=== PATIENT | female | born 1960 | race Caucasian/White ===

== ENCOUNTER 2021-05-10 05:32 | Outpatient (CLI) | payer BC ==
[~2021-05-10] VITALS: Ht 162.6 cm; Wt 76.5 kg
[2021-05-10] MEDS ORDERED: LEVO75CA5 PO (14:35)
[2021-05-10] MEDS ORDERED: GARL10002 PO (14:35)
[2021-05-10] MEDS ORDERED: [UNRECOGNIZED DRUG - CODE] PO (14:35)
[2021-05-10] MEDS ORDERED: ASCO500C17 PO (14:35)
[2021-05-10] MEDS ORDERED: CITA20TA9 PO (14:35)
[2021-05-10] MEDS ORDERED: GABA300S2 PO (14:35)
[2021-05-10] MEDS ORDERED: METF-865 PO (14:35)
[2021-05-10] MEDS ORDERED: CYAN50005 PO (14:35)
[2021-05-10] MEDS ORDERED: LYSI100014 PO (14:35)
[2021-05-10] MEDS ORDERED: CALC-696 PO (14:35)
[2021-05-10] MEDS ORDERED: BLAC540C4 PO (14:35)
[2021-05-10] MEDS ORDERED: POTA99TA21 PO (14:35)
[2021-05-10] MEDS ORDERED: LIOT5TAB10 PO (14:35)
[2021-05-10] MEDS ORDERED: ASPI-999 PO (14:35)
[2021-05-10] MEDS ORDERED: LOSA1TAB26 PO (14:35)
[2021-05-10] MEDS ORDERED: [UNRECOGNIZED DRUG - OTHER] (14:35)
[2021-05-10] MEDS ORDERED: BIOT10004 PO (14:35)
[2021-05-10] MEDS ORDERED: CETI10TA49 PO (14:35)
== END 2021-05-10 14:45 | disposition home or self-care (01) ==
LOC: PREOP 05:32
PROVIDERS: ATTEND Obstetrics & Gynecology
DX: Z01.818 Encounter for other preprocedural examination (principal)

== ENCOUNTER 2021-05-17 08:22 | Day surgery (SDC) | payer BC ==
[~2021-05-17] VITALS: Ht 162 cm; Wt 76.5 kg
[2021-05-17] VITALS (12 sets, daily range): BP systolic 116–148; BP diastolic 59–80
[~2021-05-17 08:22] MED LIST: ASCO500C17 PO; ASPI-999 PO; BIOT10004 PO; BLAC540C4 PO; CALC-696 PO; CETI10TA49 PO; CITA20TA9 PO; CYAN50005 PO; GABA300S2 PO; GARL10002 PO; LEVO75CA5 PO; LIOT5TAB10 PO; LOSA1TAB26 PO; LYSI100014 PO; METF-865 PO; POTA99TA21 PO; [UNRECOGNIZED DRUG - CODE] PO; [UNRECOGNIZED DRUG - OTHER]
[2021-05-17] MEDS ORDERED: NS (IVPB) 100 ML ONE (08:44)
[2021-05-17] MEDS ORDERED: LIDOCAINE/EPI 1%-1:100,000 (XYLOCAINE) 20ML ONE (08:44)
[2021-05-17] MEDS ORDERED: ESTRADIOL VAGINAL CREAM 42.5 GM (ESTRACE) VG ONE (08:44)
[2021-05-17] MEDS ORDERED: LIDOCAINE/EPI 1%-1:200,000 (XYLOCAINE) 30 ML VIAL ONE (08:44)
[2021-05-17] MEDS ORDERED: VASOPRESSIN INJECTION 20 UNIT/ML VIAL ONE (08:44)
[2021-05-17] MEDS ORDERED: metroNIDAZOLE 500MG/100ML IVPB 100 ML IV ONE (08:45)
[2021-05-17] MEDS ORDERED: ceFAZolin 2 GM IV Premixed 50 ML IV ONE (08:45)
--- NOTE | 2021-05-17 08:51 | Progress Note-Pre Operative ---
Pre-Operative Progress Note H&P Reviewed The H&P was reviewed, patient examined and no changes noted. Date Seen by Provider: May 17, 2021 Time Seen by Provider: 08:50 Date H&P Reviewed: May 17, 2021 Time H&P Reviewed: 07:00 Pre-Operative Diagnosis: incomplete uterovaginal prolapse, stress incontinence LEXX PRINCE DO May 17, 2021 08:51
[2021-05-17 09:11] LABS: BASOPHILS % (AUTO) 1 % (0-10); EOSINOPHILS # (AUTO) 0.2 10^3/uL (0.0-0.3); EOSINOPHILS % (AUTO) 2 % (0-10); HEMATOCRIT 47 % (35-52); HEMOGLOBIN 15.1 g/dL (11.5-16.0); LYMPHOCYTES # (AUTO) 2.1 10^3/uL (1.0-4.0); LYMPHOCYTES % (AUTO) 27 % (12-44); MEAN CORPUSCULAR HEMOGLOBIN 30 pg (25-34); MEAN CORPUSCULAR HGB CONC 32 g/dL (32-36); MEAN CORPUSCULAR VOLUME 92 fL (80-99); MEAN PLATELET VOLUME 9.8 fL (9.0-12.2); MONOCYTES # (AUTO) 0.8 10^3/uL (0.0-1.0); MONOCYTES % (AUTO) 10 % (0-12); NEUTROPHILS # (AUTO) 4.7 10^3/uL (1.8-7.8); NEUTROPHILS % (AUTO) 60 % (42-75); PLATELET COUNT 198 10^3/uL (130-400); WHITE BLOOD COUNT 7.9 10^3/uL (4.3-11.0)
[2021-05-17] MEDS: LACTATED RINGERS 1,000 ML IV PRN ×3 (09:25→12:47)
[2021-05-17 09:31] LABS: LYMPHOCYTES % (MANUAL) 32 %; MONOCYTES % (MANUAL) 11 %; NEUTROPHILS % (MANUAL) 55 %
[2021-05-17 09:32] LABS: EOSINOPHILS % (MANUAL) 2 %; RBC MORPH NORMAL
[2021-05-17 09:39] LABS: BILIRUBIN,URINE NEGATIVE (NEGATIVE); CLARITY,URINE CLEAR; COLOR,URINE YELLOW; GLUCOSE, URINE (UA) NEGATIVE (NEGATIVE); KETONES,URINE NEGATIVE (NEGATIVE); LEUKOCYTE ESTERASE ,URINE NEGATIVE (NEGATIVE); NITRITE,URINE NEGATIVE (NEGATIVE); PROTEIN,URINE NEGATIVE (NEGATIVE)
[2021-05-17] MEDS ORDERED: fentaNYL INJ 100 MCG/2 ML AMP ONE (09:40)
[2021-05-17] MEDS ORDERED: LIDOCAINE PF 2% 5 ML (XYLOCAINE) VIAL ONE ×2 (09:40→09:42)
[2021-05-17] MEDS ORDERED: proPOfol 200 MG/20 ML (DIPRIVAN) VIAL IV ONE ×2 (09:40→09:41)
[2021-05-17] MEDS ORDERED: ROCURONIUM 10 MG/ML 5 ML SYRINGE IV ONE (09:41)
[2021-05-17] MEDS ORDERED: MIDAZOLAM 2 MG/2 ML (VERSED) VIAL ONE (09:41)
[2021-05-17] MEDS ORDERED: ONDANSETRON 4 MG/2 ML (SDV) Z0FRAN ONE (09:41)
[2021-05-17 10:00] LABS: BACTERIA,URINE NEGATIVE /HPF; SQUAMOUS EPITHELIAL CELL,UR 0-2 /HPF; WBC,URINE 0-2 /HPF
[2021-05-17 10:01] LABS: AMORPHOUS SEDIMENT,UR FEW AMOR URATES /LPF
[2021-05-17] MEDS ORDERED: HYDROmorphone 2 MG/ML VIAL (DILAUDID) ONE (10:12)
[2021-05-17] MEDS ORDERED: NEOSTIGMINE 3 MG/3 ML VIAL ONE (11:02)
[2021-05-17] MEDS ORDERED: GLYCOPYRROLATE 0.2 MG/ML (ROBINUL) 2 ML VIAL ONE ×2 (11:02→12:02)
[2021-05-17] MEDS ORDERED: SEVOFLURANE (ULTANE) 15 ML INHAL SOLN ONE ×3 (11:50→12:33)
[2021-05-17] MEDS ORDERED: PHENYLEPHRINE 100 MCG/ML 10 ML (ANESTHESIA) SYR ONE (12:02)
[2021-05-17] MEDS ORDERED: KETOROLAC 30 MG/ML VIAL ONE (12:35)
[2021-05-17] MEDS ORDERED: BENZOCAINE/MENTHOL (DERMOPLAST) 56 ML CAN TP PRN (12:45)
[2021-05-17] MEDS ORDERED: METOCLOPRAMIDE INJ 10 MG/2 ML (REGLAN) IV PRN (12:45)
[2021-05-17] MEDS ORDERED: morphine INJ 4 MG/ML 1 ML (VIAL/SYRINGE) IVP PRN (12:45)
[2021-05-17] MEDS ORDERED: ONDANSETRON 4 MG/2 ML (SDV) Z0FRAN IV PRN (12:45)
[2021-05-17] MEDS ORDERED: PATIENT MAY USE OWN MEDS, ALL MC SCH (12:45)
[2021-05-17] MEDS ORDERED: KETOROLAC 30 MG/ML VIAL IV SCH (12:45)
--- NOTE | 2021-05-17 12:49 | Operative Report ---
Operative Report Date of Procedure/Surgery May 17, 2021 Surgeon (s) LEXX PRINCE DO Rpg Programmer Analyst (s): NA Post-Operative Diagnosis same, urethral and cervical stenosis pigented and raised ight labial lesion multiple small sebaceous cysts Procedure Performed RaTH, BSO anterior colporraphy PV sling right labil biopsy Description of Procedure Anesthesia Type: General Estimated blood loss (mL): 100 Specimen(s) collected/removed uterus tubes, ovaries right labial biopsy Description of the Procedure After informed consent was obtained, patient was taken into the operating room where general anesthetic was found to be adequate. She was prepped and draped in the usual sterile fashion in the dorsal lithotomy position. A Hurtado catheter was placed. A speculum was placed in the vagina. The cervix is stenotic and the cervix is flush with the vaginal apex. There was a large cystocele, and a smaller rectocele. The cervix was visualized and the anterior lip was grasped with a sharp toothed tenaculum. The cervix was gently dilated with dilators before I was able to sound the uterus. The uterus was sounded and depth was approximately 6 centimeters. I placed the Grace device ( 6 cm) and a 3.0 cm collar was advanced over the cervix. I inserted the Grace without difficulty, inflating the balloon and securing it around the fornix of the cervix. The collar was then secured with sutures at 12 o'clock. Attention was then turned to the patient's abdomen. the skin was injected with 0.25% Marcaine. A supraumbilical incision was made about 8 mm. A Veress needle was inserted and I confirmed intraabdominal placement with a drop in pressure and the saline drop test. The opening pressure was 7 mmHg. I then insufflated the abdomen to a maximum of 15 mmHg with warmed CO2 gas. I placed an additional 8 mm trocar in the left abdomen lateral to the umbilicus approximately 15 cm. The second robotic port was placed about 12 cm lateral to the right placement. This was an 8 mm trocar. These were placed under direct visualization of the laparoscope. 0.25% Marcaine was injected prior to placement of all trocars. When all placements were confirmed, the patient was placed in steep [place] allowing adequate visualization and the robot was brought in for docking. The docking was accomplished without difficulty. I then took over the command of the robot utilizing the sureseal and monopolar nazia. I was able to visualize the round ligaments bilaterally and grasped them and cauterized with bipolar cautery and then cut with my nazia. At this point, I grasped the infundibulopelvic ligament and transected bilaterally using the bipolar. There was no bleeding, no adhesions and no damage. I then moved my dissection to the posterior leaves of the broad ligament. I dissected the posterior leaves of the broad ligament off the uterine arteries skeletonizing them bilaterally. I then took a second clamp with the bipolar cautery and with the nazia, transected the vessels away from the lateral aspect to the cervical stroma. I dissected the anterior peritoneum off the lower uterine segment. I continually pushed the bladder back and I took excessively great care and I was eventually able to dissect the vesicouterine peritoneum off the lower uterine segment. I then dissected in a V fashion towards the midline between the uterosacral ligaments. This allowed me to skeletonize the uterine vessels bilaterally. The balloon on the GRACE was insufflated. This allowed me to see the GRACE circumferentially. I then performed a colpotomy anteriorly and then amputate with cervix away from the vaginal fornix. I then continued the colpotomy circumferentially. Once this was performed, the autopsy assistant removed the uterus, tubes and ovaries through the vagina. She then left the uterus in the vagina to maintain the pneumoperitoneum. . I then began closure of the vaginal cuff. The uterus was left in the vagina to maintain pneumoperitoneum. I closed the apices of the vaginal cuff with 2-0 Vicryl V lock sutures with a colposuspension through the uterosacral ligaments. This suspended the apices of the vaginal cuff. I extended this to the midline from both sides and overlapped the V lock sutures in the midline. Excellent closure is noted and hemostasis is achieved. There was a moderate enterocele, so i did a modified culdoplasty with the Vicryl in a pursestring fashion (two stitches). The ureters were seen and were no where near the area of dissection. All the needles were removed from the patient's abdomen. Now, the robotic instruments were removed and the robot was docked back to laparoscopy. The pelvis was irrigated. There was no active bleeding noted. Bilateral ureters were seen the entire time during the surgery and were peristalsing. There was no excessive bleeding noted. The trocars were removed under direct visualization. The laparoscopic sites were visualized and found to be hemostatic. The trocar sites were injected with 0.25% Marcaine. The skin incisions were closed with 4-0 Monocryl in a subcuticular fashion and then with Dermabond. Op sites were placed over the incision sites. The instruments were removed from the vagina and I noted there were no abrasions. The patient was repositioned. The cystocele was mostly reduced but was still 2+. She continued to have relaxation of the urethra. the rectocele was mostly reduced however. I grasped the anterior vagina with an Allis clamp. I then injected the posterior epithelium with the dilute vasopressin and then made a midline incision I undermined the vaginal epithelium and then dissected this o ff of the pubovaginal fascia laterally to the white line. I then reduced the cystocele with two layers of interrupted figure of eight style 2-0 Vicryl sutures. This adequately reduced the cystocele. I then trimmed the vaginal epithelium and then closed the defect with 2-- Vicryl in a running fashion. I then repositioned the patient and removed the catheter. I made a 1 cm incision approximately 1.5 cm from the urethral meatus. I dissected laterally with metzenbaum scissors and then performed a pubovaginal sling in standard fashion. this laid gently under the urethra in the midurethra with no twist or buckling. I then removed the catheter and gently dilated the urethra to place the cystoscopy. I did a cystoscopy and saw both ureters effluxing bilaterally. There was no defect in the bladder. During this time, the patient exhibited a valsalva and there was no leakage with a full bladder. The desura device was then removed after I determined the sling was in proper location and not too tight. The vaginal epithelium was now closed with 4-0 Monocryl in running fashions. The vagina was then packed with Estrace cream and vaginal packing. Sponge, lap, needle and instrument counts correct times two. Patient was awakened and taken to recovery in a stable condition. Findings of the Procedure large fibroid uterus 4+ cystocele > 50 deg rotation of urethra cervical stenosis vaginal atrophy urethral atrophy normal tubes right ovary stuck to the right pelvis and ovarian fossa normal left atrophic ovary 2-3 + prolapse small enterocele 1-2 + rectocele Allergies and Home Medications Allergies Coded Allergies: No Known Drug Allergies (Unverified , 05/10/21) Home Medications Acetaminophen 500 Mg Tablet, 1,000 MG PO Q8HR Prescribed by: LEXX PRINCE on 05/18/21 0830 Ascorbic Acid 500 Mg Capsule, 500 MG PO UD, (Reported) EVERY OTHER DAY Last Action: Last Taken Edited Aspirin 81 Mg Tab.chew, 81 MG PO DAILY, (Reported) Last Action: Last Taken Edited Biotin 1,000 Mcg Tab.chew, 1,000 MCG PO DAILY, (Reported) Last Action: Last Taken Edited Black Cohosh 540 Mg Capsule, 540 MG PO UD, (Reported) Last Action: Last Taken Edited Calcium Citrate/Vitamin D3 1 Each Tablet, 1 EACH PO UD, (Reported) Last Action: Last Taken Edited Cetirizine HCl 10 Mg Tablet, 10 MG PO UD, (Reported) EVERY OTHER DAY Last Action: Last Taken Edited Citalopram Hydrobromide 20 Mg Tablet, 20 MG PO HS, (Reported) EVERY OTHER DAY Last Action: Last Taken Edited Cyanocobalamin (Vitamin B-12) 5,000 Mcg Tab.rapdis, 5,000 MCG PO UD, (Reported) EVERY OTHER DAY Last Action: Last Taken Edited Gabapentin 300 Mg/6 Ml Solution, 300 MG PO DAILY, (Reported) Last Action: Last Taken Edited Garlic 1,000 Mg Capsule, 1,000 MG PO DAILY, (Reported) Last Action: Last Taken Edited Ginseng 250 Mg Capsule, 500 MG PO DAILY, (Reported) Last Action: Last Taken Edited Ibuprofen 600 Mg Tablet, 600 MG PO Q6HR Prescribed by: LEXX PRINCE on 05/18/21 0830 Levothyroxine Sodium 75 Mcg Capsule, 75 MCG PO UD, (Reported) DAILY EXCEPT SUNDAY Last Action: Last Taken Edited Liothyronine Sodium 5 Mcg Tablet, 5 MCG PO UD, (Reported) EVERY OTHER DAY Last Action: Last Taken Edited Losartan/Hydrochlorothiazide 1 Each Tablet, 1 EACH PO DAILY, (Reported) Last Action: Last Taken Edited Lysine 1,000 Mg Tablet, 500 MG PO UD, (Reported) EVERY OTHER DAY Last Action: Last Taken Edited Metformin HCl 500 Mg Tab.er.24h, 1,000 MG PO DAILY, (Reported) Last Action: Last Taken Edited Oxycodone Hcl 5 Mg Tab, 5 MG PO Q4HR Prescribed by: LEXX PRINCE on 05/18/21 0830 Potassium Gluconate 99 Mg Tablet, 99 MG PO UD, (Reported) EVERY OTHER DAY Last Action: Last Taken Edited Patient Home Medication List Home Medication List Reviewed: Yes LEXX PRINCE DO May 17, 2021 12:48
[2021-05-17] MEDS ORDERED: ONDANSETRON 4 MG/2 ML (SDV) Z0FRAN IVP PRN (13:15)
[2021-05-17] MEDS ORDERED: HYDROmorphone 2 MG/ML VIAL (DILAUDID) IV ONE (13:15)
[2021-05-17] MEDS ORDERED: fentaNYL INJ 100 MCG/2 ML AMP IVP ONE (13:15)
[2021-05-17] MEDS ORDERED: morphine INJ 10 MG/ML 1ML (SYR OR VIAL) IVP ONE (13:15)
[2021-05-17] MEDS ORDERED: ACETAMINOPHEN 500 MG TAB (TYLENOL) PO SCH (14:00)
[2021-05-17] MEDS: inSUlin ASPART (NovoLOG) 1 UNIT/0.01 ML (CHARGE PER UNIT) SC SCH ×2 (16:00→21:55)
[2021-05-17] MEDS: KETOROLAC 15 MG/ML VIAL IV SCH (18:23)
[2021-05-17] MEDS ORDERED: traZODone 50 MG (DESYREL) TAB PO SCH (21:00)
[2021-05-17] MEDS ORDERED: diphenhydrAMINE 25 MG TAB (BENADRYL) PO ONE ×2 (21:52→22:00)
[2021-05-17] MEDS: LACTATED RINGERS 1,000 ML IV SCH (21:55)
[2021-05-18 00:14] VITALS: BP 136/65
[2021-05-18] MEDS: KETOROLAC 15 MG/ML VIAL IV SCH ×2 (00:14→06:05)
[2021-05-18 03:55] VITALS: BP 136/66
[2021-05-18] MEDS: LACTATED RINGERS 1,000 ML IV SCH (06:05)
[2021-05-18 06:26] LABS: BASOPHILS % (AUTO) 0 % (0-10); EOSINOPHILS # (AUTO) 0.1 10^3/uL (0.0-0.3); EOSINOPHILS % (AUTO) 1 % (0-10); HEMATOCRIT 38 % (35-52); HEMOGLOBIN 12.5 g/dL (11.5-16.0); LYMPHOCYTES # (AUTO) 2.7 10^3/uL (1.0-4.0); LYMPHOCYTES % (AUTO) 28 % (12-44); MEAN CORPUSCULAR HEMOGLOBIN 30 pg (25-34); MEAN CORPUSCULAR HGB CONC 33 g/dL (32-36); MEAN CORPUSCULAR VOLUME 91 fL (80-99); MEAN PLATELET VOLUME 9.9 fL (9.0-12.2); MONOCYTES # (AUTO) 0.9 10^3/uL (0.0-1.0); MONOCYTES % (AUTO) 10 % (0-12); NEUTROPHILS # (AUTO) 5.8 10^3/uL (1.8-7.8); NEUTROPHILS % (AUTO) 61 % (42-75); PLATELET COUNT 158 10^3/uL (130-400); WHITE BLOOD COUNT 9.6 10^3/uL (4.3-11.0)
[2021-05-18 06:36] LABS: POTASSIUM 4.1 MMOL/L (3.6-5.0)
[2021-05-18 06:37] LABS: CALCIUM 8.7 MG/DL (8.5-10.1)
[2021-05-18 06:42] LABS: CREATININE SERUM 0.74 MG/DL (0.60-1.30)
[2021-05-18 08:00] VITALS: BP 136/65
--- NOTE | 2021-05-18 08:28 | Progress Note ---
Subjective Date Seen by a Provider: May 18, 2021 Time Seen by a Provider: 08:30 Subjective/Events-last exam Did not require insulin overnight Good UO Catheter and vag pack out. Plan DC home today once voided Objective Exam Vital Signs Date Time Temp Pulse Resp B/P (MAP) Pulse Ox O2 Delivery O2 Flow Rate FiO2 05/18/21 03:55 37.3 74 18 136/66 (89) 92 Room Air 05/18/21 00:14 37.4 83 18 136/65 (88) 92 Room Air 05/17/21 19:25 37.0 79 18 129/60 (83) 95 Room Air 05/17/21 17:30 36.6 67 18 120/59 (79) 95 Room Air 05/17/21 14:30 68 16 129/69 (89) Room Air 05/17/21 13:45 36.4 12 118/68 (85) 99 Room Air 05/17/21 13:45 36.8 66 16 128/61 (83) 95 Room Air 05/17/21 13:45 Room Air 05/17/21 13:40 36.4 12 118/68 (85) 99 Room Air 05/17/21 13:30 Room Air 05/17/21 13:30 14 124/67 (86) 98 Room Air 05/17/21 13:20 16 124/70 (88) 99 Room Air 05/17/21 13:15 OxyMask 2 05/17/21 13:10 12 122/67 (85) 100 OxyMask 2 05/17/21 13:00 OxyMask 5 05/17/21 13:00 22 116/78 (91) 100 OxyMask 5 05/17/21 12:50 14 127/73 (91) 98 OxyMask 8 05/17/21 12:48 OxyMask 8 05/17/21 12:48 36.5 16 127/73 (91) 98 OxyMask 8 05/17/21 08:55 36.5 77 18 148/80 (102) 96 Room Air I & O 05/18/21 07:00 Intake Total 3850 ml Output Total 1690 ml Balance 2160 ml Capillary Refill : Less Than 3 Seconds General Appearance: No Apparent Distress Results Lab Laboratory Tests 05/17/21 08:45: White Blood Count 7.9, Red Blood Count 5.09, Hemoglobin 15.1, Hematocrit 47, Mean Corpuscular Volume 92, Mean Corpuscular Hemoglobin 30, Mean Corpuscular Hemoglobin Concent 32, Red Cell Distribution Width 13.0, Platelet Count 198, Mean Platelet Volume 9.8, Immature Granulocyte % (Auto) 0, Neutrophils (%) (Auto) 60, Lymphocytes (%) (Auto) 27, Monocytes (%) (Auto) 10, Eosinophils (%) (Auto) 2, Basophils (%) (Auto) 1, Neutrophils # (Auto) 4.7, Lymphocytes # (Auto) 2.1, Monocytes # (Auto) 0.8, Eosinophils # (Auto) 0.2, Basophils # (Auto) 0.0, Immature Granulocyte # (Auto) 0.0, Neutrophils % (Manual) 55, Lymphocytes % (Manual) 32, Monocytes % (Manual) 11, Eosinophils % (Manual) 2, Blood Morphology Comment NORMAL 05/17/21 08:51: Glucometer 110 05/17/21 09:30: Urine Color YELLOW, Urine Clarity CLEAR, Urine pH 6.0, Urine Specific [place] 1.025H, Urine Protein NEGATIVE, Urine Glucose (UA) NEGATIVE, Urine Ketones NEGATIVE, Urine Nitrite NEGATIVE, Urine Bilirubin NEGATIVE, Urine Urobilinogen 0.2, Urine Leukocyte Esterase NEGATIVE, Urine RBC (Auto) NEGATIVE, Urine RBC NONE, Urine WBC 0-2, Urine Squamous Epithelial Cells 0-2, Urine Crystals PRESENTH, Urine Amorphous Sediment FEW BETTE URATESH, Urine Bacteria NEGATIVE, Urine Casts NONE, Urine Mucus MODERATEH, Urine Culture Indicated NO 05/17/21 12:55: Glucometer 89 05/17/21 17:33: Glucometer 142H 05/17/21 21:42: Glucometer 91 05/18/21 05:48: White Blood Count 9.6, Red Blood Count 4.20, Hemoglobin 12.5, Hematocrit 38, Mean Corpuscular Volume 91, Mean Corpuscular Hemoglobin 30, Mean Corpuscular Hemoglobin Concent 33, Red Cell Distribution Width 12.7, Platelet Count 158, Mean Platelet Volume 9.9, Immature Granulocyte % (Auto) 0, Neutrophils (%) (Auto) 61, Lymphocytes (%) (Auto) 28, Monocytes (%) (Auto) 10, Eosinophils (%) (Auto) 1, Basophils (%) (Auto) 0, Neutrophils # (Auto) 5.8, Lymphocytes # (Auto) 2.7, Monocytes # (Auto) 0.9, Eosinophils # (Auto) 0.1, Basophils # (Auto) 0.0, Immature Granulocyte # (Auto) 0.0, Sodium Level 142, Potassium Level 4.1, Chloride Level 108H, Carbon Dioxide Level 23, Anion Gap 11, Blood Urea Nitrogen 10, Creatinine 0.74, Estimat Glomerular Filtration Rate 80, BUN/Creatinine Ratio 14, Glucose Level 100, Calcium Level 8.7 05/18/21 05:57: Glucometer 90 Assessment/Plan Assessment/Plan Assess & Plan/Chief Complaint POD 1 s/p RATH,BSO,ant repair and PV sling Final Diagnosis Incomplete uterovaginal prolapse stress incontinence LEXX PRINCE DO May 18, 2021 08:28
[2021-05-18] MEDS ORDERED: IBUP-844 PO (08:30)
[2021-05-18] MEDS ORDERED: OXC5T PO (08:30)
[2021-05-18] MEDS ORDERED: ACET-93 PO (08:30)
--- NOTE | 2021-05-18 08:32 | Discharge Inst-Women's Service ---
Discharge Inst-Women's Serv Depart Medication/Instructions New, Converted or Re-Newed RX: Transmitted to Pharmacy Instructions nothing in vagina until cleared by physician Keep stools soft no driving for one week no lifting over 25 lbs no straining Final Diagnosis incomplete uterovaginal prolapse cystocele stress incontinence Problems Reviewed?: Yes Consults/Follow Up Additional Follow Up: Yes (1 week incision check and 8 weeks vaginal exam/follow up visit) Activity Activity: Activity as Tolerated Driving Instructions: No Driving for 1 Week NO SMOKING: NO SMOKING Nothing Inside Vagina: No Douching, No [place], No Tampons Diet Discharge Diet: No Restrictions Symptoms to Report to : Swelling Increased, Bleeding Excessive, Fever Over 101 Degrees F, Vaginal Bleeding Increase, Cramps in Feet or Legs, Vaginal Discharge Foul For Any Problems or Questions: Contact Your Physician Skin/Wound Care Infection Signs and Symptoms: Increased Redness, Foul Odor of Wound, Increased Drainage, Skin Itchy or Has a Rash, Increased Swelling, Temperature Above 101 F Operative Area Clean and Dry: Keep Incision Clean/Dry Stitches/[place]/Dermabond: Dermabond Bathing Instructions: LEXX Vega DO May 18, 2021 08:32
--- NOTE | 2021-05-18 09:35 | Anesthesia-General Post-Op ---
General Patient Condition Mental Status/LOC: Same as Preop Cardiovascular: Satisfactory Nausea/Vomiting: Absent Respiratory: Satisfactory Pain: Controlled Complications: Absent Post Op Complications Complications None Follow Up Care/Instructions Patient Instructions None needed. Anesthesia/Patient Condition Patient Condition Patient is doing well, no complaints, stable vital signs, no apparent adverse anesthesia problems. No complications reported per nursing. SENTHIL RIVERO CRNA May 18, 2021 09:35
[2021-05-18 11:15] VITALS: BP 136/65
[2021-05-18] MEDS ORDERED: IBUPROFEN 600 MG (MOTRIN) TAB PO SCH (18:00)
== END 2021-05-18 11:15 | disposition home or self-care (01) ==
LOC: SDC 08:22 → WS 14:20 → SDC 05-18 11:15
PROVIDERS: ATTEND Obstetrics & Gynecology
DX: D25.1 Intramural leiomyoma of uterus (principal); D25.0 Submucous leiomyoma of uterus; D25.2 Subserosal leiomyoma of uterus; N83.8 Other noninflammatory disorders of ovary, fallopian tube and broad ligament; N88.2 Stricture and stenosis of cervix uteri; N90.89 Other specified noninflammatory disorders of vulva and perineum; N81.2 Incomplete uterovaginal prolapse; I10 Essential (primary) hypertension; E11.40 Type 2 diabetes mellitus with diabetic neuropathy, unspecified; F41.9 Anxiety disorder, unspecified; N39.3 Stress incontinence (female) (male); Z79.84 Long term (current) use of oral hypoglycemic drugs; Z79.899 Other long term (current) drug therapy; Z79.82 Long term (current) use of aspirin; Z79.890 Hormone replacement therapy
CPT/HCPCS: 56605; 57240; 57288; 58571; 80048; 81000; 82947 ×2; 85007; 85025; 85027; 86850; 86900; 86901; 87081; 88305; 88307; 94664; C1771; 36415

== ENCOUNTER → 2022-11-10 | Outpatient (CLI) | payer BC, OTHER ==
[~2022-11-10] MED LIST changes: +ACET-93 PO; +IBUP-844 PO; +OXC5T PO; -POTA99TA21 PO; +POTA99TA26 PO
== END ==
LOC: RAD 15:45
PROVIDERS: ATTEND Obstetrics & Gynecology
DX: Z12.31 Encounter for screening mammogram for malignant neoplasm of breast (principal)
CPT/HCPCS: 77063; 77067

== ENCOUNTER → 2022-11-22 | Outpatient (CLI) | payer BC ==
--- NOTE | 2022-11-22 14:54 | Diagnostic Imaging Report ---
Indication: Left breast density. Patient presents for additional views. Correlation is made with screening study from 11/10/2022. Unilateral left 2-D and 3-D diagnostic mammography was performed. This includes spot compression CC and ML views as well as conventional 90 degrees lateral views. Additional views show persistent irregular density in the upper and slightly inner left breast at posterior depth approximately 13 cm from the nipple. No other abnormalities are seen. IMPRESSION: BI-RADS 0 Persistent irregular density in the upper slightly inner left breast, 13 cm from the nipple. Further evaluation of this area with ultrasound is recommended and will be performed today. ACR BI-RADS Category 0: Incomplete. (Needs additional imaging evaluation). Result letter will be mailed to the patient. Note: At least 10% of breast cancer is not imaged by mammography. Dictated by: Dictated on workstation # [id number]
--- NOTE | 2022-11-22 14:55 | Diagnostic Imaging Report ---
Indication: Left breast density. Correlation is made with diagnostic mammogram earlier the same day and screening mammogram from 11/10/2022. Sonographic interrogation of the upper slightly inner left breast was performed. There is an area of hypoechogenicity at 11:30 location of the left breast approximately 10 cm from the nipple measuring 11 mm x 2 mm x 10 mm. This may account for the irregular density noted mammographically. No other suspicious sonographic findings are seen. No posterior acoustic shadowing or abnormal vascularity is detected. IMPRESSION: BI-RADS Category 4 There is a slightly irregular region of hypoechogenicity at 11:30 location of the left breast, 10 cm from the nipple which may account for the mammographic density. Tissue sampling of the density noted mammographically is recommended. Stereotactic biopsy of the density is recommended. Findings and recommendations were discussed with the patient. ACR BI-RADS Category 4: Suspicious abnormality. Dictated by: Dictated on workstation # [id number]
== END ==
LOC: RAD 13:07
PROVIDERS: ATTEND Obstetrics & Gynecology
DX: R92.2 Inconclusive mammogram (principal)
CPT/HCPCS: 76642; 77065; G0279

== ENCOUNTER → 2022-11-29 | Outpatient (CLI) | payer BC ==
[~2022-11-29] VITALS: Ht 165.1 cm; Wt 76.4 kg
[~2022-11-29] MED LIST changes: +LIDOCAINE 1% INJ 30 ML (XYLOCAINE) VIAL INJ ONE
--- NOTE | 2022-11-29 17:22 | Diagnostic Imaging Report ---
INDICATION: Left breast density. EXAMINATION: Patient presents for stereotactic biopsy. PROCEDURE: Patient was brought to the stereotactic suite and placed in a chair in the sitting upright position. The left breast was positioned craniocaudal. The density noted in the upper and inner aspect of the left breast posterior depth was stereotactically targeted. All images were viewed on a dedicated workstation. The superior left breast was then prepped and draped in the usual sterile fashion. Small amount of 1% lidocaine was utilized for local anesthesia. The 8 gauge vacuum-assisted needle was advanced in place per stereotactic coordinates. A total of three core biopsies were obtained with the vacuum-assisted device. A marker clip was then deployed. The needle was removed hemostasis was obtained utilizing manual compression. Follow-up 2D left CC and ML mammogram was obtained demonstrating a marker clip in the posterior and medial left breast. Patient tolerated the procedure well and left the department in stable condition. IMPRESSION: Successful stereotactic biopsy of density in the upper inner left breast posterior depth utilizing the vacuum assisted device. Pathology results are currently pending. Dictated by: Dictated on workstation # [id number]
== END ==
LOC: RAD 13:15
PROVIDERS: ATTEND Obstetrics & Gynecology
DX: N63.22 Unspecified lump in the left breast, upper inner quadrant (principal)
CPT/HCPCS: 19081; A4648